=== PATIENT | male | born 1935 | race Caucasian/White ===

== ENCOUNTER 2017-03-29 06:43 | Day surgery (SDC) | payer MEDICARE ==
[~2017-03-29] VITALS: Ht 188 cm; Wt 63.0 kg
[2017-04-13] MEDS ORDERED: DAILY MULTIPLE1 EAC1 PO (13:41)
[2017-04-13] MEDS ORDERED: CALTRATE-600 D600 MG PO (13:41)
[2017-04-13] MEDS ORDERED: FLORINEF0.1 MG PO (13:41)
[2017-04-13] MEDS ORDERED: EFFEXOR XR DPS150 M1 PO (13:42)
[2017-04-13] MEDS ORDERED: ELIQUIS5 MG PO (13:42)
[2017-04-13] MEDS ORDERED: LANOXIN DPS0.125 MG PO (13:42)
[2017-04-13] MEDS ORDERED: VITAMIN B-121000 MCG SL (13:42)
[2017-04-13] MEDS ORDERED: SEROQUEL50 MG PO (13:43)
[2017-04-13] MEDS ORDERED: LOPRESSOR DPS50 MG PO (13:43)
[2017-04-13] MEDS ORDERED: TPN IV (13:43)
[2017-04-13] MEDS ORDERED: LIPIDS IV (13:44)
== END 2017-03-29 16:20 | disposition home or self-care (01) ==
LOC: RAD.S 06:43 → EDSTATUS 13:00 → RAD.S 13:00
PROC: 0DH63UZ Insertion of Feeding Device into Stomach, Percutaneous Approach (ICD-10-PCS; principal; 2017-03-29)
DX: E46 Unspecified protein-calorie malnutrition (principal); Z79.899 Other long term (current) drug therapy; Z88.8 Allergy status to other drugs, medicaments and biological substances

== ENCOUNTER 2017-03-30 09:25 | Inpatient (IN) | payer MEDICARE ==
[~2017-03-30] VITALS: Ht 188 cm; Wt 68.7 kg
--- NOTE | 2017-03-31 07:54 | HP ---
ADMIT: 03/30/2017 RM/LOC: 312 [facility] MR#: [id number] 2620 [facility] [address] [place], [place] [phone] LINDA TRINH [address] [place] [address] History and Physical SEX: M AGE: 81 : 1935 DATE OF SERVICE: CHIEF COMPLAINT: Generalized weakness and dizziness. HISTORY OF PRESENT ILLNESS: The patient is an 81-year-old, white male, from [place], [place], who was brought to [place] yesterday to have a J-tube placed. He normally is followed by his regular doctor in [place], [place] and is also followed by an oncologist in [place], [place]. He has the unfortunate history of metastatic melanoma, which was diagnosed in 2013. Also, has a history of severe acid reflux and has had several gastric procedures to correct this. Generally, his health has been declining over the past several months. His oral intake has decreased. He has a very poor appetite and also is not able to the eat and drink normally. A decision was made by his primary doctors to place a J-tube. He was brought to [place] yesterday to have this J tube placed by our interventional radiologist. The J- tube was successfully placed yesterday. Upon evaluation of the J-tube today, it was noted that the patient was extremely weak. He was brought into the emergency room for evaluation. Evaluation in the emergency room showed that his blood pressure was low. His heart rate was tachycardic, and he was in atrial fibrillation. He was hypoxic and his lab work showed that he was most likely dehydrated. He has a history of recurrent urinary tract infections and sepsis. He met the criteria for the sepsis pathway and was therefore admitted under the sepsis pathway with IV antibiotics, IV fluids, and close monitoring. PAST MEDICAL HISTORY: 1. Previous health problems include metastatic melanoma, which was diagnosed in November 2013. The metastasis is to his lungs. 2. Atrial fibrillation with RVR (permanent). 3. History of severe acid reflux with dysphagia. 4. Cachexia. 5. Hypotension. 6. Depression. 7. J-tube placement on 03/29/2017. 8. Severe acid reflux. 9. History of recurrent bladder infections. PAST SURGICAL HISTORY: The patient had a Nina-en-Y procedure done for his severe acid reflux in 2009 in [place]. The patient has had previous gallbladder removal along with a biliary duct stone. The patient has had 3 prior lumbar spine surgeries, 2 prior right shoulder surgeries, a left inguinal hernia repair, tonsillectomy, previous G-tube placement, and most recently a J-tube placement yesterday. The patient has had previous cardioversions on multiple occasions and a cardiac ablation procedure done in the past by his automobile body repair chief. MEDICATIONS: Home med list includes: 1. Midodrine 5 mg 3 times daily. 2. Calcium carbonate 600 mg b.i.d. 3. Fludrocortisone 0.1 mg daily. ADMIT: 03/30/2017 RM/LOC: 312 [facility] MR#: [id number] [address] [place] [id number] LINDA TRINH [address] [place] [address] History and Physical SEX: M AGE: 81 : 1935 4. Multivitamin daily. 5. Eliquis 5 mg b.i.d. 6. Vitamin B12, 1000 mcg daily. 7. Venlafaxine ER 150 mg daily. ALLERGIES: THE PATIENT STATES HE HAS AN ALLERGY TO IV VISTARIL, WHICH CAUSED SCLEROSIS OF A VEIN. NO OTHER MEDICAL ALLERGIES NOTED. SOCIAL HISTORY: The patient is and lives with his in [place], [place]. 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 He has never been a smoker and has never consumed alcohol on a regular basis. FAMILY HISTORY: There is heart disease in his father and an aunt. There are multiple family members with cancers. There is colorectal cancer in his maternal grandmother and breast cancer in his sister. REVIEW OF SYSTEMS: GENERAL: The patient has become weak with a gradual decline in his health over the past several months. Complains of generalized cachexia and poor appetite. No significant fevers or chills noted recently. HEENT: Denies any visual changes, sore throat, or sinus symptoms. He has had problems with difficulty swallowing, which has progressively worsened in recent weeks. PULMONARY: No significant shortness of breath, cough, or wheezing. Does have metastatic melanoma to the lungs. No hemoptysis noted. CARDIOVASCULAR: History of permanent atrial fibrillation. Denies chest pain or notable palpitations. No prior history of coronary artery disease. GASTROINTESTINAL: Had a J-tube placed yesterday. Denies nausea, vomiting, or diarrhea. Does admit to poor appetite. MUSCULOSKELETAL: He has had previous spine surgeries. Currently, no unusual aches or pains in the muscles or joints. ENDOCRINE: No history of thyroid problems or diabetes. PSYCHIATRIC: History of depression. NEUROLOGIC: No history of seizures or strokes. GENITOURINARY: Has had problems with recurrent bladder infections in the past. PHYSICAL EXAMINATION: VITAL SIGNS: Most recent vitals include a temp of 95.8, pulse 128 and irregular, respiratory rate 14 and nonlabored, blood pressure 106/66, and O2 saturations 95% on room air currently. GENERAL: The patient appears cachectic. He is cooperative and answers questions when asked. At times, he appears a little confused, but at times he is very lucid and answers questions appropriately. HEENT: Ears clear bilaterally. Oropharynx is dry and pasty. Pupils equal, round, and reactive to light and accommodation bilaterally. NECK: Supple without lymphadenopathy or JVD. No thyroid enlargement or tenderness. LUNGS: Clear bilaterally without wheezes, rhonchi, or rales. ADMIT: 03/30/2017 RM/LOC: 312 [facility] MR#: [id number] 2620 [facility] [address] [place] [id number] LINDA TRINH [facility] [place] [address] History and Physical SEX: M AGE: 81 : 1935 HEART: Tachycardic and irregular. ABDOMEN: Soft and nondistended. He does have a J-tube in place in the left upper quadrant region. Mild tenderness around the J-tube site, but no signs of infection. EXTREMITIES: With generalized weakness in all extremities. Mild edema in his left lower extremity. SKIN: No jaundice, cyanosis, or rashes. NEUROLOGIC: No focal deficits. LABORATORY AND X-RAY: Urine culture and blood cultures are drawn, but pending. Admission INR is 1.49. Lactic acid initially in the emergency room was 2.2, but increased to 4.0. Admission sodium 142, potassium 4.2, BUN elevated at 38, creatinine 1.3, glucose 140, total bilirubin 0.8, alkaline phosphatase 76, AST 11, ALT 13, and magnesium 2.3. Creatine kinase 26, MB 0.9, relative index 3.5, troponin I less than 0.015. EKG showed atrial fibrillation with rapid ventricular response. Urinalysis did not show any initial signs of infection. Initial white blood cell count 12.9, hemoglobin 13.7, and platelet count 203. Procalcitonin level elevated at 28.17. Chest x- ray did not show any definite signs of infection, but did show nodularity in the right lung. ASSESSMENT: 1. Dehydration. 2. Malnutrition with cachexia. 3. Metastatic melanoma. 4. Permanent atrial fibrillation with rapid ventricular response. 5. Generalized weakness. 6. Hypoxia. 7. J-tube placement on 03/29/2017. 8. Hypotension. 9. Criteria met for sepsis pathway. 10.History of severe acid reflux with previous surgical procedures to ADMIT: 03/30/2017 RM/LOC: 312 [facility] MR#: [id number] [address] [place], [place] [phone] LINDA TRINH [address] [place] [address] History and Physical SEX: M AGE: 81 : 1935 correct this. PLAN: The patient has met the sepsis pathway criteria and is currently on IV Zosyn, IV vancomycin, and is receiving IV fluid boluses per pathway recommendation. He has been placed in the ICU for close monitoring. He is currently on a Cardizem drip for his atrial fibrillation, and Cardiology has been consulted. A supportive care consult has been ordered along with speech therapy consult to evaluate his swallowing for oral intake. Nutrition consult has been ordered to evaluate for use of his J-tube and to consider initiating nutrition for his J-tube. We will ask that Interventional Radiology continue to follow the J-tube, which was just placed yesterday. We will ask PT and OT to see this patient for strengthening. Casey Casillas MD/ ryan JOB #: [id number] CC: Casey Casillas, Attending Physician Casey Casillas, Family Physician
--- NOTE | 2017-04-02 13:44 | CO ---
ADMIT: 03/30/2017 RM/LOC: 312 [facility] MR#: [id number] 2620 [facility] [address] [place] [phone] LINDA TRINH [address] [place] [address] Consultation SEX: M AGE: 81 : 1935 DATE OF CONSULTATION: 03/31/2017 ATTENDING PHYSICIAN: Casey Casillas CONSULTING PHYSICIAN: Janneth Franco, ANNA TIME OUT: 1015 hours. TIME-OUT: 1110 hours. REASON FOR CONSULTATION: Supportive care consultation was requested by Dr. Casillas for discussion of code status. PRESENT ILLNESS: Mr. Trinh is a delightful 81-year-old male with a history of metastatic melanoma to the lung. He is from [place] and has been receiving immunotherapy under the direction of his Oncology team in that area. Unfortunately, he has had ongoing issues with decline and decreasing oral intake over the past few weeks. The decision was made for him to receive a J- tube for feeding. He was admitted yesterday for the J-tube insertion, however was noted to be very weak, therefore was brought to the emergency room for evaluation. He did meet sepsis criteria and remains in the ICU receiving care. He does have a history of chronic atrial fibrillation, ALEJANDRA is following him here. Additionally, there was concerns about his swallow, therefore Speech Therapy evaluated the patient at this time, recommends n.p.o. status due to the risk for silent aspiration. They are obtaining an MBS study that was done recently in his hometown for review. Upon admission, the patient stated that he did not want to be intubated, however would want CPR in the event of a cardiac arrest. Due to his overall complexities, supportive care consultation was requested to discuss goals for care. In terms of advanced directives, the patient initially is okay for CPR, but no intubation. The patient has completed a living will as well as the 5 wishes paperwork and durable [id number] for healthcare. The patient's Collin Trinh, whose phone# [phone] is the patient's durable power-of- bradley linebacker crewmember for healthcare. Symptomatically, the patient is very weak and debilitated. He is lethargic during my discussion. He denies pain or other physical complaints. PAST MEDICAL HISTORY: Metastatic melanoma to the lung, atrial fibrillation with RVR, severe acid reflux with dysphagia, cachexia, hypotension, depression, J-tube placement recently, history of recurrent bladder infections. SURGICAL HISTORY: Nina-en-Y procedure done for acid reflux in 2009, cholecystectomy, lumbar spine surgery, shoulder surgery, inguinal hernia repair, tonsillectomy, previous G-tube placement, cardioversions on multiple occasions, as well as a cardiac ablation. ADMIT: 03/30/2017 RM/LOC: 312 [facility] MR#: [id number] [address] [place] [phone] LINDA TRINH [address] [place] [address] Consultation SEX: M AGE: 81 : 1935 ALLERGIES: THE PATIENT IS ALLERGIC TO HYDROXYZINE. CURRENT MEDICATIONS: Please see the patient's MAR for specific routes and dosages. His current medications are as follows. 1. Vancomycin. 2. Lanoxin. 3. Lopressor. 4. Nitro-Bid. 5. Rangel-Synephrine. 6. Heparin. 7. Lovenox. 8. Xylocaine jelly. 9. Nitrostat. 10.Zosyn. 11.Cardizem. 12.Zofran. 13.Dilaudid. 14.Nitro drip. 15.Tylenol. 16.Vitamin B12. SOCIAL HISTORY: The patient is . He was living at home with his . 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 He has never used tobacco, and he does not use alcohol. FAMILY HISTORY: Heart disease in his father and aunt, and multiple family members with cancer. FUNCTIONAL REVIEW: Prior to his stay, he was at home. His states that he could dress himself and ambulate. His palliative performance scale prior to admission was around 60% to 70%. Currently, he is mostly in bed. He is requiring mainly assistance. He is very drowsy. His current palliative performance scale is 40%. REVIEW OF SYSTEMS: A 10-point review of systems was completed and other than those pertinent positives and negatives mentioned the HPI, it is negative. PHYSICAL EXAMINATION: GENERAL: The patient is examined in the bed. He is in no acute distress. VITAL SIGNS: Temperature 98.3, pulse 102, respirations 13, blood pressure 126/70, oxygen 92% on 2 L per nasal cannula. HEENT. Head is normocephalic. Pupils are 3 mm and brisk. Oral mucosa pink and moist with fair dentition. NECK: Supple. RESPIRATORY: Respirations are equal and nonlabored at rest. LUNGS: Diminished in the bases bilaterally. CARDIOVASCULAR: Irregularly irregular without murmurs, rubs, or gallops. 1+ bilateral lower extremity edema noted. ADMIT: 03/30/2017 RM/LOC: 312 [facility] MR#: [id number] [facility] [address] [phone] LINDA TRINH [address] [place] [address] Consultation SEX: M AGE: 81 : 1935 GASTROINTESTINAL: Soft, nontender. Bowel sounds are positive. MUSCULOSKELETAL: Generalized weakness. No obvious joint deformities. INTEGUMENTARY: Skin turgor is fair. No rashes or wounds noted. NEUROLOGIC: Fatigued, but oriented x3. He will fall asleep easily. PSYCHIATRIC: Calm. Cooperative. No agitation or delirium noted. DIAGNOSTIC DATA: Sodium 145, potassium 4.5, BUN 44, creatinine 1.3, total protein 4.9, albumin 2.4. WBC 12.5, hemoglobin 12.2, hematocrit 38.0, platelets are 201. Lactic acid peaked at 4.0 yesterday, procalcitonin was initially 28.17, and redraw this morning was 16.58. Urine culture is pending. Blood cultures so far showing no growth. IMPRESSION: 1. Physical debility. 2. Lethargy. 3. Fatigue. 4. Severe protein-calorie malnutrition. 5. Dysphagia. 6. Anorexia. 7. Dehydration. 8. Cachexia. 9. Metastatic melanoma to the lung. 10.Sepsis. 11.Atrial fibrillation. 12.Recent J-tube placement. 13.Palliative care. 14.The patient initially was CPR only but transitions to a do not resuscitate/do not intubate status during the course of my discussion. PLAN: 1. I was able to meet with the patient and his at the bedside. The patient is fatigued, but oriented and able to participate at times during our discussion. We reviewed his overall status and goals for the time ahead. Both the patient and his are realistic regarding his prognosis and the fact that his cancer is eventually going to be terminal. 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 At this point, they hope that he can improve through his current issues and get back home. They do agree to ongoing discussions pending his status. 2. We did review code status at length including the burden versus benefit of a full code status versus a do not resuscitate/do not intubate status versus a CPR only code status. Initially, the patient and his are very clear that he would not want to go on the ventilator. When discussing this we did discuss the fact that CPR would be futile in the setting of him not having an airway for oxygenation. Additionally with his underlying metastatic melanoma, they understand that his odds of surviving cardiac resuscitation are less than 1%. After discussion, they ADMIT: 03/30/2017 RM/LOC: 312 [facility] MR#: [id number] 2620 [facility] [address] [place] [phone] LINDA TRINH [address] [place] [address] Consultation SEX: M AGE: 81 : 1935 do agree that the burden outweighs the benefit in terms of CPR and also intubation. They do agree to a DNR/DNI status. The patient states that in the event that he were to cardiac or respiratory code that he be kept comfortable and allowed to naturally. 3. The patient has completed advanced directive, however, he may benefit from completing a POLST form with his do not resuscitate/do not intubate status on it. At this point, we will see how he does in the days ahead and we will assist with completion of this pending his status. 4. We will continue to follow along in the care of this patient. We would like to thank Dr. Casillas for the invitation to participate in this patient's care. Total consultation time was 55 minutes from 1015 hours to 1110 hours with 35 minutes from 1020 hours to 1055 hours spent [id number] with the patient and family discussing goals for care and providing counseling and support. We will continue to follow along in the care of this very kind patient. Janneth Franco APRN/ ryan JOB #: [id number] CC: Casey Casillas, Attending Physician Casey Casillas, Family Physician
--- NOTE | 2017-04-04 17:50 | ER ---
ADMIT: 03/30/2017 RM/LOC: ER [facility] MR#: [id number] [address] [phone] LINDA TRINH [address] [place] [address] Emergency Room Report SEX: M AGE: 81 : 1935 DATE: 03/30/2017 ADDENDUM: 81-year-old white male coming in with metastatic melanoma. He is from [place], getting oncology in [place] and then had a jejunostomy tube placed yesterday. He had a syncopal episode then today over at the guest house and was brought over here. He is cachectic appearing. He does have a history of a little orthostasis. He is not a historian. His is with him. His CBC shows white count 12.9. His chemistries are normal. INR 1.49. He does have a lactate slightly elevated to 2.2. Atrial fibrillation with rapid rate is on the monitor. We started the Cardizem drip. Owing to his cancer and lactate, we decided to prophylactically start him on antibiotics. He will be admitted by the on-call doc, who I spoke with. CONDITION ON DISCHARGE: Serious but stable. Rich Lala MD/ ryan JOB #: [id number] CC: Rich Lala MD, Attending Physician Marilyn Paige-Jose M, Family Physician
--- NOTE | 2017-04-09 14:37 | CO ---
ADMIT: 03/30/2017 RM/LOC: 312 [facility] MR#: [id number] 2620 [facility] [address] [place] [phone] LINDA TRINH [address] [place] [address] Consultation SEX: M AGE: 81 : 1935 DATE OF CONSULTATION: 03/30/2017 ATTENDING PHYSICIAN: Casey Casillas CONSULTING PHYSICIAN: Alessandro Angel MD REASON FOR CONSULTATION: Atrial fibrillation with RVR. Erna Wolfe RN, scribing for Alessandro Angel MD. HISTORY OF PRESENT ILLNESS: Linda is a pleasant 81-year-old gentleman, I have been asked to see in Cardiology consultation by Dr. Casillas for atrial fibrillation with rapid ventricular rate. He was here for feeding tube placement which occurred yesterday. He has history of metastatic melanoma and has had severe caloric malnutrition. He has no prior history of coronary artery disease per his report, but does follow with Dr. Soriano, who comes out to where he lives near [place]. He is on anticoagulation with Eliquis for his atrial fibrillation. This has been held since Wednesday for his procedure yesterday. He came in today, seeing Dr. Miles for evaluation of his dressing and site, but at that time, he had severe weakness. His states he has not had any significant fluids or nutrition since Wednesday. Normally he could walk, but today, he was so weak, he could not. So, he was sent to the emergency room for evaluation and IV fluid resuscitation. In the ER, he was found to have AFib with RVR. He was given a Cardizem bolus followed by drip. He is currently on a drip of 10 mg an hour. He remains in AFib and per his report, he is under rate control strategy with his primary motel clerk. He does have issues occasionally at times with hypotension, but currently is maintaining adequate blood pressure support. Cardiac enzymes were checked which were negative. Electrolytes were essentially normal. Mild elevation of white count at 12.9. He denies any chest pain, shortness of breath, presyncope, peripheral edema, or orthopnea. He does feel some palpitations. PAST MEDICAL HISTORY: Metastatic melanoma, permanent atrial fibrillation, and gastroesophageal reflux disease. PAST SURGICAL HISTORY: Includes back surgery, cholecystectomy, hernia repair, tonsillectomy, cataract extraction, gastric bypass surgery, laparoscopic Arpita procedure, and feeding tube placement yesterday. ALLERGIES: NO KNOWN MEDICATION ALLERGIES. MEDICATIONS: Currently he is on: 1. Cardizem drip at 10 mg an hour. 2. IV fluids at 100 mL an hour. 3. Zofran IV p.r.n. 4. Dilaudid IV every 3 to 4 hours p.r.n. pain. ADMIT: 03/30/2017 RM/LOC: 312 [facility] MR#: [id number] [address] [place] [phone] LINDA TRINH [address] [place] [address] Consultation SEX: M AGE: 81 : 1935 FAMILY HISTORY: Noncontributory. SOCIAL HISTORY: Linda is . He lives at home with his . 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 He has been unable to eat for several days because of his illness. REVIEW OF SYSTEMS: GENERAL: Increased fatigue over the last 24 hours. No recent fever, chills, or sweats. He has had significant weight gain over the last few months. EYES: Denies double vision, blurred vision, cataracts, or glaucoma. ENT: Denies hearing loss or problems with nose, mouth or throat. PULMONARY: Denies cough, sputum production, asthma, emphysema or bronchitis. Denies snoring loudly, wakefulness at night, or fatigue upon awakening. GASTROINTESTINAL: Unable to the eat, has had multiple gastric issues. He has just had G-tube placement yesterday. GENITOURINARY: Denies dysuria, hematuria, nocturia, urinary tract infection, or kidney stones. Denies history of renal insufficiency or failure. MUSCULOSKELETAL: Generalized weakness, otherwise no pain. ENDOCRINE: Denies history of thyroid dysfunction or diabetes. HEMATOLOGIC: Metastatic melanoma. NEUROLOGIC: Denies chronic headaches, dizziness, syncope, stroke, seizures or numbness or tingling. PSYCHIATRIC: Denies history of mental illness or feelings of depression. PHYSICAL EXAMINATION: VITAL SIGNS: Blood pressure 135/84, heart rate 91, respirations 20, temperature 98.0, oxygenation 94% on O2. SKIN: [place], warm and dry. EYES: Sclerae clear. No xanthelasmas. ENT: Oral mucosa is pink and moist. No jugular venous distention or carotid bruits. CHEST: Respirations are even and unlabored. Lungs are clear to auscultation. HEART: Irregularly irregular. No murmurs, gallops, or rubs. ABDOMEN: Soft and nontender. MUSCULOSKELETAL: Gait is normal. EXTREMITIES: Peripheral pulses palpable. No clubbing, cyanosis or edema. PSYCHIATRIC: Alert and oriented. Mood and affect are appropriate. DIAGNOSTIC DATA: Sodium 142, potassium 4.2, BUN 38, creatinine 1.3, glucose 140, magnesium 2.3. CK 26, MB 0.9. Troponin less than 0.015. INR 1.49. White blood cell count 12.9, hemoglobin 13.7, hematocrit 40.8, and platelets 203. ADMIT: 03/30/2017 RM/LOC: 312 [facility] MR#: [id number] [address] [place] [phone] LINDA TRINH [address] [place] [address] Consultation SEX: M AGE: 81 : 1935 ASSESSMENT AND PLAN: 1. Permanent atrial fibrillation with rapid ventricular response. 2. Metastatic melanoma. 3. Status post G tube. Recommend continue his IV fluids and calorie replacement. Agree with Cardizem drip at current rate. Continue Eliquis as well. Thank you for the consultation. I have read and agree with the documentation that has been completed regarding this visit. By signing this record, I attest that the documentation was completed in my physical presence and is an accurate record of the encounter. Erna Wolfe RN / C. Josse Angel MD / ryan JOB #: [id number] CC: Casey Casillas, Attending Physician Casey Casillas, Family Physician
[2017-04-13] MEDS ORDERED: DAILY MULTIPLE1 EAC1 PO (13:41)
[2017-04-13] MEDS ORDERED: CALTRATE-600 D600 MG PO (13:41)
[2017-04-13] MEDS ORDERED: FLORINEF0.1 MG PO (13:41)
[2017-04-13] MEDS ORDERED: EFFEXOR XR DPS150 M1 PO (13:42)
[2017-04-13] MEDS ORDERED: VITAMIN B-121000 MCG SL (13:42)
[2017-04-13] MEDS ORDERED: ELIQUIS5 MG PO (13:42)
[2017-04-13] MEDS ORDERED: LANOXIN DPS0.125 MG PO (13:42)
[2017-04-13] MEDS ORDERED: SEROQUEL50 MG PO (13:43)
[2017-04-13] MEDS ORDERED: TPN IV (13:43)
[2017-04-13] MEDS ORDERED: LOPRESSOR DPS50 MG PO (13:43)
[2017-04-13] MEDS ORDERED: LIPIDS IV (13:44)
--- NOTE | 2017-05-23 07:20 | DS ---
ADMIT: 03/30/2017 RM/LOC: [address] [facility] MR#: [id number] [address] [facility] [address] [place] [id number] LINDA TRINH [address] [place] [address] General Discharge Summary SEX: M AGE: 81 : 1935 ADMISSION DATE: 03/30/2017 DISCHARGE DATE: 04/12/2017 PRIMARY DIAGNOSES: 1. Metastatic melanoma. 2. Dehydration. 3. Malnutrition. 4. Permanent atrial fibrillation with rapid ventricular rate. 5. Generalized weakness. 6. Hypoxia. 7. J-tube placement on 03/29/2017. 8. Confusion. 9. Hypotension. 10.Sepsis. 11.Anemia (received 1 unit of packed red blood cells on 04/05/2017). 12.Hypokalemia. CONSULTATIONS DURING THIS HOSPITALIZATION: 1. Cardiology with Dr. Josse Angel. 2. Supportive Care with Janneth Franco APRN. HISTORY OF PRESENT ILLNESS: The patient is an 81-year-old white male from [place], [place], who was brought to [place] on 03/29/2017, to have a J- tube placed. He is normally followed by his regular doctor in [place], [place], and also followed by an oncologist in [place], [place]. He has the unfortunate history of metastatic melanoma, which was diagnosed in 2013. He has had some problems with severe acid reflux and several gastric procedures to try to correct this. His health has been declining over the past several months. His oral intake has decreased. His appetite is poor. He is not able to eat and drink normally. Decision was made by his primary doctors to place J-tube and was therefore brought to [place] to have this J-tube placed by our interventional radiologist. The J-tube was placed on 03/29/2017. The patient stayed overnight in [place] and was evaluated the following day to make sure that the J-tube was in place and functioning. He was noted to be extremely weak and was sent into the emergency room for evaluation. Upon evaluation in the emergency room on 03/30/2017, his blood pressure was low, his heart rate was tachycardic and he was in atrial fibrillation. Also, was noted to be hypoxic. It was suspected that he was dehydrated. He met criteria for the sepsis pathway and was admitted under the sepsis pathway with IV antibiotics, IV fluids, and close monitoring. LABORATORY AND X-RAY DATA: Admission labs from 03/30/2017, included an INR of 1.49, lactic acid of 2.2, but had increased to 4.0. Admission sodium 142, potassium 4.2, BUN elevated at 38, creatinine 1.3, glucose 140, bilirubin 0.8, alkaline phosphatase 76, AST 11, ALT 13, and magnesium 2.3. Creatine kinase 26, MB 0.9, relative index 3.5, and troponin I less than 0.015. EKG showed atrial fibrillation with rapid ventricular response. Urinalysis did not show any signs of infection. Initial white blood cell count was 12.9, hemoglobin 13.7, and platelet count 203. Procalcitonin level elevated at 28.17. Chest X- ADMIT: 03/30/2017 RM/LOC: [address] [facility] MR#: [id number] [address] [place] [id number] LINDA TRINH [address] [place] [id number] General Discharge Summary SEX: M AGE: 81 : 1935 ray did not show any definite signs of infection, but did show some nodularity in the right lung. Additional pertinent labs and x-rays included a urine culture that was drawn on 03/30 and showed no growth. Blood cultures drawn at time of admission on 03/30, showed no growth after 5 days. C-reactive protein was followed daily throughout the hospitalization. Initial C-reactive protein on 03/31, was elevated at 14.0, but had improved down to 8.28 prior to discharge on 04/12. Prior to discharge on 04/12, sodium was 146, potassium 4.0, BUN 23, creatinine 0.6, glucose 95, AST 14, and ALT 16. Stool blood test on 04/06 and 04/08, were both negative. Prior to discharge on 04/12, white blood cell count was normal at 7.5, hemoglobin 9.6, and platelet count 331. Chest x-ray prior to discharge on 04/12, showed improving lung opacities and pleural effusions. HOSPITAL COURSE: The patient was admitted on 03/30/2017, and was started on an IV Cardizem drip because of atrial fibrillation and rapid ventricular response. Cardiology was consulted as well. The patient was started along the sepsis pathway as well as he did meet criteria for sepsis with hypoxia, tachycardia, and hypotension. IV Zosyn and IV vancomycin were initiated. J- tube that had been placed on 03/29/2017, was monitored closely. The caliber of the J-tube was small enough that it could not be used for medications or for nutritional support. The plan was to have this initial J-tube replaced at a point down the road. The replacement J-tube was to be a larger caliber that could be used for medications and feeds. IV fluids were administered. Heart rate was monitored. PT and OT were ordered for strengthening. The patient did have the Supportive Care team come talk with family regarding further plans for cares. He has metastatic melanoma and failure to thrive. IV antibiotics were continued and labs were followed on a daily basis. The patient had been on Eliquis 5 mg b.i.d. for his anti-coagulation because of atrial fibrillation. The patient did continue to slowly improve throughout the hospitalization. Supportive Cares discussion with family eventually ended up with a decision being made the patient would like to return home with some home health care in place for further cares. Throughout this hospitalization, nutritional support was an issue. He was not able to swallow very well initially and his J-tube was not able to be used for nutrition. We eventually did get a line placed for TPN to be used. Speech Therapy did evaluate for clearance for swallowing as well. The patient did improve considerably throughout the hospitalization. DNR and DNI status was established early on with the patient and family. By 04/12, the patient was stable enough to leave the hospital and plans were made for patient to return home to [place], [place], with plans for home health. The patient was therefore set up to be discharged to home on 04/12/2017. DISCHARGE INSTRUCTIONS: The patient was discharged to home in [place], [place], with plans for home health care on 04/12/2017. Medications at time of discharge included: 1. Caltrate 600 mg b.i.d. ADMIT: 03/30/2017 RM/LOC: [address] [facility] MR#: [id number] [address] [place] [id number] LINDA TRINH [address] [place] [address] General Discharge Summary SEX: M AGE: 81 : 1935 2. Effexor XR 150 mg daily. 3. Eliquis 5 mg b.i.d. 4. Florinef 0.1 mg daily. 5. Lanoxin 0.125 mg daily. 6. Lopressor 25 mg b.i.d. 7. Seroquel 50 mg at bedtime. 8. Multivitamin once daily. 9. Vitamin B12 of 1000 mcg daily. 10.TPN #8 through central line. All medications were to be given orally and crashed puree foods in order for him to swallow. J-tube cares were to be provided by home health care. His diet was to remain a TPN per central line with mechanical soft orally. PT and OT were to be continued in the home setting if possible. He is to follow up with his regular primary care physician in [place], [place], and with his regular oncologist in [place] in 5 to 7 days following discharge. Casey Casillas MD/ ryan JOB #: [id number] CC: Casey Casillas MD, Attending Physician Casey Casillas MD, Family Physician
== END 2017-04-12 14:11 | disposition home health service (06) | DRG 871 ==
LOC: RAD.S 09:25 → ER 09:25 → RAD.S 09:30 → EDSTATUS 09:30 → 4PCU 13:42 → 3ICU 13:42 → 4PCU 04-04 11:29
PROVIDERS: ADMIT Family Medicine
PROC: BD13YZZ Fluoroscopy of Small Bowel using Other Contrast (ICD-10-PCS; principal; 2017-03-30)
PROC: 3E0336Z Introduction of Nutritional Substance into Peripheral Vein, Percutaneous Approach (ICD-10-PCS; 2017-04-01)
PROC: 30233N1 Transfusion of Nonautologous Red Blood Cells into Peripheral Vein, Percutaneous Approach (ICD-10-PCS; 2017-04-05)
DX: A41.9 Sepsis, unspecified organism (principal); E43 Unspecified severe protein-calorie malnutrition; C78.01 Secondary malignant neoplasm of right lung; C78.02 Secondary malignant neoplasm of left lung; I48.2 Chronic atrial fibrillation; E86.0 Dehydration; E83.42 Hypomagnesemia; Z68.1 Body mass index [BMI] 19.9 or less, adult; E87.6 Hypokalemia; K21.9 Gastro-esophageal reflux disease without esophagitis; R09.02 Hypoxemia; F32.9 Major depressive disorder, single episode, unspecified; Z93.4 Other artificial openings of gastrointestinal tract status; Z85.820 Personal history of malignant melanoma of skin; Z79.01 Long term (current) use of anticoagulants; Z66 Do not resuscitate